=== PATIENT | female | born 2000 | race Caucasian/White ===

== ENCOUNTER 2022-07-26 17:58 | Emergency (ER) | payer OTHER, MEDICAID, SELFPAY ==
--- NOTE | ~2022-07-26 | CT_ITS ---
EXAMINATION: CT abdomen pelvis w con DATE: 07/26/2022 19:59 INDICATION: Acute umbilical pain today, nausea TECHNIQUE: Computed tomography (CT) of the abdomen and pelvis was performed with 100 CC Omnipaque 350 intravenous contrast. Automated exposure control and iterative reconstruction technique were employe d. Exam dose: 309.53 mGy-cm total exam DLP. COMPARISON: None. FINDINGS: The lung bases are clear. Normal heart size. No pericardial or pleural effusion. The liver, gallbladder, Bile Ducts, Spleen pancreas, pancreatic duct, and adrenal glands and kidneys are unremarkable. No urinary tract calculus or hydroureteronephrosis. Normal caliber of the abdominal aorta. No intraperitoneal or retroperitoneal or pelvic mass lesion or adenopathy or ascites is noted. The urinary bladder, uterus and adnexal areas are unremarkable. No bowel obstruction or free air. The appendix is not clearly defined but no inflammatory changes are noted. Included skeletal structures are unremarkable. IMPRESSION: No significant abnormality Reviewed, dictated and finalized at [facility] Reviewed, dictated and finalized at [facility]. IMPRESSION: No significant abnormality
[2022-07-26 18:12] VITALS: BP 127/86; PULSE 102; RESP 16; TEMP 36.1; O2SAT 100
[2022-07-26] MEDS: ONDANSETRON INJ 4 MG/2 ML VIAL IV PUSH (18:40)
[2022-07-26] MEDS: SODIUM CHLORIDE 0.9% IV 1,000 ML 999 ML IV CONT (18:40)
[2022-07-26 18:43] LABS: Basophils Absolute Auto 0.04 K/mm3 (0.00-0.10); Basophils Percent Auto 0.4 % (0.0-1.0); Eosinophils Absolute Auto 0.19 K/mm3 (0.02-0.50); Eosinophils Percent Auto 2.1 % (1.0-6.0); Hematocrit 43.4 % (35.0-49.0); Hemoglobin 14.4 g/dL (12.0-15.0); Immature Granulocyte Absolute 0.02 K/mm3 (0.00-0.00); Immature Granulocyte Percent A 0.2 % (0.0-0.0); Lymphocytes Percent Auto 34.7 % (18.0-42.0); Mean Corpuscular HGB Conc 33.2 g/dL (32.0-36.0); Mean Corpuscular Hemoglobin 30.4 pg (27.0-31.0); Mean Corpuscular Volume 91.8 fL (78.0-102.0); Monocytes Absolute Auto 0.59 K/mm3 (0.10-0.90); Monocytes Percent Auto 6.6 % (2.0-11.0); Platelet Count Result 321 K/mm3 (150-420); Red Blood Count 4.73 M/mm3 (4.20-5.40); White Blood Count 8.9 K/mm3 (4.8-10.8)
[2022-07-26 19:01] LABS: Alanine Aminotransferase 28 U/L (14-59); Albumin Level 4.4 g/dL (3.4-5.0); Alkaline Phosphatase 91 U/L (46-116); Anion Gap 10 mmol/L (8-16); Aspartate Amino Transferase 17 U/L (15-37); Bilirubin,Total 0.2 mg/dL (0.00-1.00); Blood Urea Nitrogen 17 mg/dL (7-18); Calcium 9.6 mg/dL (8.5-10.1); Carbon Dioxide 29 mmol/L (21-32); Chloride 104 mmol/L (98-108); Estimated CRCL calculation 73 ml/min; Estimated Glomerular Filt Rate > 60; Glucose 99 mg/dL (70-99); Lipase 21 U/L (16-77); Osmolality Calculated 297 mOsm/kg (285-295); Partial Thromboplastin Time 28.7 SEC (23.90-30.70); Potassium 3.5 mmol/L (3.5-5.1); Prothrombin Time 11.1 Seconds (9.50-12.10); Sodium 143 mmol/L (136-145); Total Protein 8.4 g/dL (6.4-8.2)
--- NOTE | 2022-07-26 19:04 | PC.NURSE ---
On 07/26/22, the student, [steven partida ], provided care and completed [facility] documentation on this patient. I have reviewed the student's documentation and agree with the findings.
[2022-07-26 19:06] LABS: Appearance Urine Clear (Clear); Bilirubin Urine Negative (Negative); Blood Urine Negative (Negative); Color Urine Light Yellow (Yellow); Glucose Urine UA Negative (Negative); Ketones Urine Negative (Negative); Leukocyte Esterase Ur Negative LEU/UL (Negative); Nitrate Urine Negative (Negative); Protein Urine Negative (Negative); Urobilinogen Urine 0.2 mg/dL (0.2-1.0)
--- NOTE | 2022-07-26 19:09 | ED.ABDPAIN ---
HPI - Abdominal Pain General Chief Complaint: Abdominal Pain Stated Complaint: stomach pain Time Seen by Provider: 07/26/22 18:15 Source: patient and family Mode of arrival: ambulatory Limitations: no limitations History of Present Illness MD elicited complaint: abdominal pain Pertinent past history: none Onset (ago): hour(s) Pain Consistency: intermittent Severity: mild Pain scale (0-10): 2 Quality: cramping Radiation: epigastric and suprapubic Migration to: periumbilical Exacerbating factors: nothing Relieving factors: nothing Related Data Home Medications Medication Instructions Recorded Confirmed albuterol sulfate 90 mcg/actuation 2 puff inhalation QID PRN 07/26/22 07/26/22 aerosol inhaler (ProAir HFA) Shortness Of Breath Allergies Allergy/AdvReac Type Severity Reaction Status Date / Time amoxicillin Allergy Hives Verified 07/26/22 18:24 naproxen Allergy Loss of Verified 07/26/22 18:24 Consciousness Review of Systems Review of Systems: All systems reviewed & are unremarkable except as noted in HPI and below PMFSH Past Medical History Medical History Patient denies medical problems Exam Const: General: healthy appearing Nutritional Appearance: well nourished Orientation/consciousness: patient oriented x3 Limitations: no limitations HENMT: Head: normal to inspection Face and sinus: normal facial exam Eyes: Conjunctivae: conjunctivae normal Pupils: Equal, round and reactive pupils present EOM: EOMs intact bilaterally Neck: Neck: normal visual inspection Chest: Chest palpation & inspection: normal inspection of the chest Resp: Effort & Inspection: normal respiratory effort Auscultation: clear to auscultation bilaterally Cardio: Rate: regular rate Rhythm: regular rhythm GI: GI Palp: Yes Soft to palpation and Yes Tenderness to palpation present (GI) Auscultation: normal bowel sounds : General: Yes bladder normal to palpation Urinary Catheter: Urinary Catheter: patent and draining Back/Spine/Pelvis: Back: no CVA tenderness Skin: Rashes: no rashes Wounds: no wounds Neuro: General: patient oriented x3 Cranial nerves: Yes Nystagmus not present Speech: normal speech Gait exam (Neuro): Normal gait present Extrem: General: normal to inspection Psych: Mental Status: mental status grossly normal Affect: normal affect Attitude: cooperative Course Course Emergency Course: patient received Zofran IV fluids and labs reviewed with patient as well as urinalysis and CT scan of the abdomen. Vital Signs Vital signs: Vital Signs Temperature 36.1 C L 07/26/22 18:12 Pulse Rate 102 H 07/26/22 18:12 Respiratory Rate 16 07/26/22 18:12 Blood Pressure 127/86 07/26/22 18:12 Pulse Oximetry 100 07/26/22 18:12 Oxygen Delivery Room Air 07/26/22 18:12 Temperature 36.1 C L 07/26/22 18:12 Pulse Rate 102 H 07/26/22 18:12 Respiratory Rate 16 07/26/22 18:12 Blood Pressure 127/86 07/26/22 18:12 Pulse Oximetry 100 07/26/22 18:12 Oxygen Delivery Room Air 07/26/22 18:12 MDM - Abdominal Pain Lab Data 07/26/22 18:39 07/26/22 18:39 Labs: Lab Results 07/26/22 07/26/22 07/26/22 Range/Units 18:21 18:39 18:39 WBC 8.9 (4.8-10.8) K/mm3 RBC 4.73 (4.20-5.40) M/mm3 Hgb 14.4 (12.0-15.0) g/dL Hct 43.4 (35.0-49.0) % MCV 91.8 (78.0-102.0) fL MCH 30.4 (27.0-31.0) pg MCHC 33.2 (32.0-36.0) g/dL RDW 12.0 (11.6-14.4) % Plt Count 321 (150-420) K/mm3 MPV 9.0 L (9.2-11.8) fl Immature Gran % (Auto) 0.2 H (0.0-0.0) % Neut % (Auto) 56.0 (50.0-70.0) % Lymph % (Auto) 34.7 (18.0-42.0) % [place] % (Auto) 6.6 (2.0-11.0) % Eos % (Auto) 2.1 (1.0-6.0) % Baso % (Auto) 0.4 (0.0-1.0) % Lymph # (Auto) 3.10 (1.10-4.50) K/mm3 [place] # (Auto) 0.59 (0.10-0.90) K/mm3 Eos # (Auto) 0.19 (0.02-0.50) K/mm3 Ba
[2022-07-26 19:11] LABS: Add Urine Microscopic? NO
[2022-07-26 19:12] LABS: Pregnancy On Board Control Positive; Urine Pregnancy Test Negative
[2022-07-26 20:06] VITALS: PULSE 89; RESP 12; O2SAT 99
[2022-07-26 20:47] VITALS: BP 103/68; PULSE 81; RESP 18; O2SAT 99
== END 2022-07-26 20:57 | disposition home or self-care (01) ==
PROVIDERS: Emergency Provider Emergency Medicine; PCP Family Medicine
DX: K52.9 Noninfective gastroenteritis and colitis, unspecified (principal)
CPT/HCPCS: 36415; 74177; 80053; 81003; 81025; 83605; 83690; 85025; 85610; 85730; 96361; 96374; 99284; J2405; J7030; Q9967

== ENCOUNTER 2024-04-03 09:58 | Outpatient (CLI) | payer OTHER, SELFPAY ==
[2024-04-03 22:23] LABS: Progesterone 0.5 ng/mL
[2024-04-04 03:48] LABS: DHEA-Sulfate 228 mcg/dL (14-349); FSH 6.7 mIU/mL; LH 10.5 mIU/mL; Prolactin 13.1 ng/mL
[2024-04-05 15:37] LABS: Testosterone Total 61 ng/dL (2-45)
[2024-04-13 07:54] LABS: Estradiol, Ultrasensitive 71 pg/mL
== END 2024-04-03 09:59 | disposition home or self-care (01) ==
PROVIDERS: PCP Family Medicine; Visit Provider Student in an Organized Health Care Education/Training Program
DX: N91.2 Amenorrhea, unspecified (principal); N92.6 Irregular menstruation, unspecified
CPT/HCPCS: 36415; 82627; 82670; 83001; 83002; 84144; 84146; 84403; 84443

== ENCOUNTER 2024-04-08 08:39 | Outpatient (CLI) | payer OTHER, SELFPAY ==
--- NOTE | ~2024-04-08 | US_ITS ---
Pelvic ultrasound. Clinical History: Amenorrhea Technique: Realtime transabdominal and transvaginal scanning of the pelvis was performed. Color flow Doppler and Doppler spectral analysis were performed. Findings: The uterus is anteverted, and measures 6.4 x 3.4 x 3.8 cm. The endometrial stripe has a th ickness of 3 mm. No focal mass is identified. The right ovary measures 2.9 x 3.0 x 2.6 cm. No significant right ovarian or adnexal mass is seen. The left ovary measures 2.7 x 3.5 x 2.8 cm. No significant left ovarian or adnexal mass is seen. Both ovaries demonstrate multiple small follicular cysts. There is small amount of free fluid in the cul de sac. Impression: Morphologic appearance of the ovaries raises the possibility of polycystic ovarian syndrome. Small amount of free fluid. Reviewed, dictated and finalized at [facility]. ETL DEVELOPER Impression: Morphologic appearance of the ovaries raises the possibility of polycystic ovar gerardo syndrome. Small amount of free fluid.
== END 2024-04-08 08:40 | disposition home or self-care (01) ==
PROVIDERS: PCP Family Medicine; Visit Provider Student in an Organized Health Care Education/Training Program
DX: N91.2 Amenorrhea, unspecified (principal)
CPT/HCPCS: 76830; 76856

== ENCOUNTER 2024-07-29 15:18 | Outpatient (CLI) | payer OTHER, SELFPAY ==
[2024-07-29 16:30] LABS: Beta HCG Quantitative < 2.39 mIU/ML
--- OUTSIDE RECORDS SUMMARY | 2024-07-29 16:37 | XMS_ITS | Clinical Summary ---
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[employer] Gender Identity Not on file Sexual Orientation Not on file Last Filed Vital Signs Vital Sign Reading Time Taken Comments Blood Pressure 113/69 02/01/2024 12:28 PM CDT Pulse 83 02/01/2024 12:28 PM CDT Temperature 36.9 C (98.4 F) 02/01/2024 12:28 PM CDT Respiratory Rate 18 02/01/2024 12:28 PM CDT Oxygen Saturation 100% 02/01/2024 12:28 PM CDT Inhaled Oxygen Concentration - - Weight 65.6 kg (144 lb 9.6 oz) 02/01/2024 12:28 PM CDT Height 160 cm (5' 3 ) 02/01/2024 12:28 PM CDT Body Mass Index 25.61 02/01/2024 12:28 PM CDT Plan of Treatment Health Maintenance Due Date Last Done Comments Cervical Cancer Screening Pap Smear (Age 21 to 29) Every 3 Years 2001 Cervical Cancer Screening 2001 Annual Physical 2004 Meningococcal B Vaccine (1 of 2 - Standard) 2017 Hepatitis C 2019 COVID-19 Vaccine ( season) 2024 Influenza Adult (#1) 2024 03/14/2002 DTaP, Tdap and Td Vaccines (8 - Td or Tdap) 12/27/2032 12/27/2022, 12/30/2012, 02/25/2007, Additional history exists Pneumococcal Vaccine: Pediatrics (0 to 5 Years) and At-Risk Patients (6 to 64 Years) Aged Out 2001, 2001 No longer eligibl e based on patient's age to complete this topic Hepatitis B Vaccines Completed 04/07/2002, 2001, 2001 HPV Vaccines Completed 05/29/2017, 12/30/2012 Meningococcal Vaccine Completed 05/29/2017, 013 RSV Immunizations Under 20 Months Aged Out No longer eligible based on patient's age to complete this topic Insurance [facility] Care Teams Slag Wheeler Relationship Specialty Start Date End Date Stefan Shine MD [address] [place] [id number] PCP - General FAMILY PRACTICE 03/13/19
--- OUTSIDE RECORDS SUMMARY | 2024-07-29 16:37 | XMS_ITS | Encounter Summary ---
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
== END 2024-07-29 15:19 | disposition home or self-care (01) ==
LOC: ANHLAB 15:20
PROVIDERS: PCP Family Medicine; Visit Provider Obstetrics & Gynecology
DX: N92.6 Irregular menstruation, unspecified (principal)
CPT/HCPCS: 36415; 84702